=== PATIENT | female | born 1945 | race Caucasian/White ===

== ENCOUNTER → 2023-08-31 11:54 | Outpatient (REF) | payer MEDICARE, SELFPAY | LOC: RAD 11:54 | PROVIDERS: ATTENDING PHYSICIAN Family Medicine | DX: S80.911A Unspecified superficial injury of right knee, initial encounter (principal); M25.561 Pain in right knee; W19.XXXA Unspecified fall, initial encounter | CPT/HCPCS: 73564 ==

== ENCOUNTER 2024-01-12 13:20 | Emergency (ER) | payer MEDICARE, SELFPAY ==
[2024-01-12 13:34] VITALS: BP 144/105
--- NOTE | 2024-01-12 16:52 | ED.GENMED ---
History of Present Illness
General
Chief Complaint: Abdominal Pain
Source: patient
Time Seen by Provider: 01/12/24 16:35
Travel History
Have you had any contact with someone who has COVID-19?: No
Do you have any symptoms of coronavirus? Fever > 100 degrees, chills, cough, shortness of breath, sore throat, loss of taste or smell, muscle aches, or headache?: No
History of Present Illness
History of Present Illness:
78-year-old female presents with left lower quadrant abdominal pain worse after having a bowel movement for the past week. Initially saw family doctor. She was told to increase her fiber intake which she has but this has not helped. No urinary
symptoms fever cough chest pain or shortness of breath. She denies any blood in the bowel movement. No vomiting. Prior surgical history includes cholecystectomy. She has a remote history of diverticulitis. No other to this time
Past History
Past History
ED Past Medical History: COPD, Psychiatric and Other (AAA)
ED Past Surgical History: Tonsilectomy and Other (AAA repair)
Social History
Tobacco: Non-smoker
Alcohol: None
Drug: None
Personal:
Living: with family
Phy Exam
Physical Exam
Physical Exam:
General: Well-appearing female no acute respiratory distress
HEENT: Normocephalic atraumatic
Heart: Regular rate and rhythm no murmurs
Lungs: Clear to auscultation bilaterally no wheezing
Abdomen soft tender to left lower quadrant no guarding rebound normal bowel sounds nondistended
Extremities: No cyanosis or edema
Course
Orders/Labs/Results
Orders:
Orders
01/12/24 13:38
IV Insert/Care/Rem.- Treatment PRN
01/12/24 16:47
CT Abd/pelvis W Iv Cont Urgent
Comment:
Reason For Exam: LLQ pain
01/12/24 17:26
Complete Blood Count/With Diff Urgent
Comprehensive Metabolic Panel Urgent
Lipase Urgent
01/12/24 18:41
Urinalysis Reflex To Culture Urgent
Date Specimen was Collected: 01/12/24
Time Specimen was Collected: 18:40
Urine Microscopic Reflex Cult Urgent
Abnormal Lab Results
01/12/24 01/12/24
17:26 18:41
Hgb 16.7 H g/dL
(12.0-16.0)
Hct 48.2 H %
(37.0-47.0)
MCV 104.1 H fL
(81.0-99.0)
MCH 36.1 H pg
(27.0-31.0)
Sodium 134 L mmol/L
(135-145)
Creatinine 0.5 L mg/dL
(0.6-1.0)
Glucose 110 H mg/dl
(70-99)
Ur Occult Blood Reflex Trace A
(Negative)
Urine Bilirubin 1+ A
(Negative)
Leukocyte Esterase Rfl Trace A
(Negative)
Urine Bacteria (Reflex) Few A
(Negative)
01/12/24 17:26
01/12/24 17:26
Vital Signs
Initial and Last Documented VS:
Initial Vital Signs
Temp Pulse Resp BP Pulse Ox
98.7 F 88 22 144/105 97
01/12/24 13:34 01/12/24 13:34 01/12/24 13:34 01/12/24 13:34 01/12/24 13:34
Last Documented Vital Signs
Temp Pulse Resp BP Pulse Ox
98.7 F 88 22 144/105 97
01/12/24 13:34 01/12/24 13:34 01/12/24 13:34 01/12/24 13:34 01/12/24 13:34
MDM/Problems Addressed
Differential Diagnosis Includes:
Left lower quadrant abdominal pain. Differential could include diverticulitis versus UTI versus bowel obstruction versus hernia
Check labs. Will order CT of abdomen with IV contrast
*Critical Care Note
Total Time (30-74mins, 75-104mins- exclusive of procedures): Not Applicable
Update Note
Update Note:
White count normal. CT shows diverticulosis but no diverticulitis. There is a mild amount of stool in the colon. Recommended stool softeners. Stable for discharge Xarelto check urinalysis
5 no obvious signs of infection but culture is pending. Hold off on treatment for UTI unless culture comes back positive.
ED Attending Note
-
Portions of this chart may have been created with voice recognition software.� Occasional wrong word or��sound alike� substitutions may have occurred due to the inherent limitations of voice recognition software.
Discharge Plan
Departure
Patient Disposition: Home (Routine Discharge)
Date of Disposition: 01/12/24
Time of Disposition: 19:50
Patient with high blood pressure during this ER visit?: No
Discharge Problem:
Abdominal pain
Instructions: Abdominal Pain
Prescriptions:
No Action
ibuprofen 200 mg Capsule
200 - 400 mg PO PRN PRN (Reason: pain)
dicyclomine 10 mg Capsule
10 mg PO BID PRN (Reason: Gi Issues)
cholecalciferol (vitamin D3) [Vitamin D3] 50 mcg (2,000 unit) Tablet
50 mcg PO DAILY
atorvastatin 10 mg Tablet
10 mg PO QPM Qty: 90 0RF
tolterodine 4 mg Capsule,Extended Release 24hr
4 mg PO DAILY
Systane Complete 0.6 % Drops
1 drp BOTH EYES PRN PRN (Reason: dry eyes)
acetaminophen [acetaminophen] 325 mg tablet
650 mg PO Q6HPRN PRN (Reason: mild pain) Qty: 14 0RF
tramadol 50 mg tablet
25 mg PO Q6HPRN PRN (Reason: severe pain/breakthrough pain) Qty: 8 0RF
ibuprofen 600 mg tablet
600 mg PO Q6H PRN (Reason: pain) Qty: 14 0RF
amoxicillin-pot clavulanate [amoxicillin-pot clavulanate] 875-125 mg tablet
1 tab PO Q12 Qty: 8 0RF
Referrals:
Reyna Shea DO [Family Provider] -
Activity Restrictions/Additional Instructions:
Continue with fiber and stool softeners. Return here for worsening symptoms. Follow-up with family doctor. You should receive a call if your urine culture is positive
Interventions
Interventions:
*Risk Screen - Suicide Last Done: 01/12/24 13:34
*General Assessment Last Done: 01/12/24 13:34
*Neglect/Abuse Screening Last Done: 01/12/24 13:34
ED- Fall Risk Assessment Last Done: 01/12/24 17:37
*ED COVID-19 Vaccine History Last Done: 01/12/24 17:38
FZ-Dfqrhq-Jjekvscjyq Assessment Last Done: 01/12/24 17:38
Discharge Date and Time
Print Language: ITALIAN
[2024-01-12 17:37] VITALS: BMI 23.5
[2024-01-12 18:07] LABS: % Basophils 0.5 % (0-2); % Eosinophils 0.9 % (0-6); % Immature Granulocytes 0.2 % (0-0.5); % Lymphocytes 23.4 % (20.5-51.1); Absolute Eosinophils 0.1 10^3/uL (0-0.7); Absolute Lymphocytes 1.4 10^3/uL (1.2-3.4); Absolute Monocytes 0.5 10^3/uL (0.1-0.6); Absolute Neutrophils 3.9 10^3/uL (1.4-6.5); Hematocrit 48.2 % (37.0-47.0); Hemoglobin 16.7 g/dL (12.0-16.0); Mean Corp Hgb Conc. 34.6 g/dL (33.0-37.0); Mean Corpuscular Hgb 36.1 pg (27.0-31.0); Mean Corpuscular Volume 104.1 fL (81.0-99.0); Mean Platelet Volume 9.2 fL (7.4-10.4); Nucleated Red Blood Cells % 0 %; Platelet Count 198 10^3/uL (130-400); Red Blood Cell Count 4.63 10^6/uL (4.20-5.40); Red Cell Dist. Width 13.9 % (11.5-14.5); White Blood Cell Count 5.9 10^3/uL (4.8-10.8)
[2024-01-12 18:30] LABS: ALT (SGPT) 12 U/L (0-35); AST (SGOT) 20 U/L (14-36); Albumin 4.2 g/dl (3.5-5.0); Alkaline Phosphatase 87 U/L (38-126); Blood Urea Nitrogen 15 mg/dl (7-17); Calcium 9.4 mg/dl (8.4-10.2); Carbon Dioxide 29 mmol/L (22-30); Chloride 103 mmol/L (98-107); Estimated Creatinine Clearance 74 ml/min; Glucose 110 mg/dl (70-99); Lipase 53 U/L (23-300); Potassium 4.2 mmol/L (3.5-5.1); Sodium 134 mmol/L (135-145); Total Bilirubin 1.1 mg/dl (0.2-1.3); Total Protein 7.1 g/dl (6.3-8.2); eGFR > 60.00
[2024-01-12 19:00] LABS: Urine Albumin Trace (Neg - Trace); Urine Bilirubin 1+ (Negative); Urine Character Clear (Clear); Urine Color Yellow; Urine Glucose Negative (Negative); Urine Ketone Negative (Negative); Urine Leukocyte Trace (Negative); Urine Nitrite Negative (Negative); Urine Occult Blood Trace (Negative); Urine Specific Gravity 1.025 (<1.030); Urine Urobilinogen 1+ (Neg - 1+)
[2024-01-12 19:40] LABS: Urine Calcium Oxalate Crystals Present
[2024-01-12 19:41] LABS: Urine Bacteria Few (Negative); Urine Red Blood Cell 0-2 /HPF (0-2); Urine White Cell 0-2 /HPF (0-5)
== END 2024-01-12 20:01 | disposition home or self-care (01) ==
LOC: EMR 13:20
PROVIDERS: Physician Assistant; EMERGENCY PHYSICIAN Emergency Medicine; FAMILY PHYSICIAN Family Medicine
DX: R10.32 Left lower quadrant pain (principal)
CPT/HCPCS: 99285; 74177; 80053; 81003; 81015; 83690; 85025; Q9967

== ENCOUNTER 2024-08-05 13:50 | Emergency (ER) | payer MEDICARE, SELFPAY ==
[2024-08-05 13:58] VITALS: BP 158/104
[2024-08-05 14:09] VITALS: BMI 24.7
[2024-08-05 14:13] VITALS: BP 161/81
--- NOTE | 2024-08-05 14:29 | ED.GENMED ---
History of Present Illness
<Carina Scanlon PA-C - Last Filed: 08/05/24 18:15>
General
Chief Complaint: Musculo-Skeletal Complaint
Source: patient
Time Seen by Provider: 08/05/24 14:18
History of Present Illness
History of Present Illness:
78yo right hand dominant female with a history of COPD and hyperlipidemia presenting with her for evaluation of weakness of the left hand. Patient reports that she has been dropping things from her left hand over the past week or so which is
new for her. She denies any associated pain or paresthesias of the hand/forearm. She denies any symptoms in the other extremities. Of note, patient has been having headaches in the mornings over the past 2 weeks which improve with Tylenol. She is
otherwise asymptomatic and denies any visual changes, dizziness, speech disturbance, gait disturbance, chest pain.
Past History
<Carina Scanlon PA-C - Last Filed: 08/05/24 18:15>
Past History
ED Past Medical History: COPD, Psychiatric and Other (AAA)
ED Past Surgical History: Tonsilectomy and Other (AAA repair)
Social History
Tobacco: Non-smoker
Alcohol: None
Drug: None
Personal:
Living: with family
Phy Exam
<Carina Scanlon PA-C - Last Filed: 08/05/24 18:15>
General Physical Exam
General Presentation: well appearing and no apparent distress
General age: appears stated age
General Skin: warm and dry
General Habitus: normal
General Mental: alert
ENT Exam
ENT Exam: normocephalic
Neurological Exam
Neurological Exam: alert and other (L hand held in slight flexion. Wool Cleaner strength is grossly equal bilaterally. CN 2-12 grossly intact. PERRL. EOMs intact. Negative drift x4. Normal finger to nose and heel to pleitez bilaterally. )
[place] Coma Scale
Eye Opening: Spontaneous
Verbal Response: Oriented
Motor Response: Obeys Commands
GCS Total Score: 15
Musculoskeletal Exam
Musculoskeletal Exam: full ROM, no edema and other (ROM of L wrist and fingers intact. No tenderness or soft tissue swelling. Motor and sensation intact in median, ulnar, and radial nerve distribution. )
Skin Exam
Skin Exam: normal color and warm/dry
Psychiatric Exam
Psychiatric Exam: normal mood/affect
Course
<Carina Scanlon PA-C - Last Filed: 08/05/24 18:15>
Orders/Labs/Results
Orders:
Orders
08/05/24 14:29
CT Head W/o Iv Contrast Urgent
Comment:
Reason For Exam: L hand weakness
08/05/24 14:47
CT Cervical Spine W/o Iv Contr Urgent
Comment:
Reason For Exam: L hand weakness
08/05/24 14:48
CR Chest - 2 Views Urgent
Comment:
Reason For Exam: R/o chest mass
08/05/24 15:06
Complete Blood Count/With Diff Urgent
Comprehensive Metabolic Panel Urgent
Abnormal Lab Results
08/05/24
15:06
MCV 103.3 H fL
(81.0-99.0)
MCH 35.7 H pg
(27.0-31.0)
Absolute Lymphs (auto) 0.9 L 10^3/uL
(1.2-3.4)
Lymphocytes % 15.6 L %
(20.5-51.1)
Monocytes % 9.4 H %
(1.7-9.3)
Glucose 132 H mg/dl
(70-99)
08/05/24 15:06
08/05/24 15:06
Vital Signs
Initial and Last Documented VS:
Initial Vital Signs
Temp Pulse Resp BP Pulse Ox
98.2 F 95 16 158/104 95
08/05/24 13:58 08/05/24 13:58 08/05/24 13:58 08/05/24 13:58 08/05/24 13:58
Last Documented Vital Signs
Temp Pulse Resp BP Pulse Ox
98.2 F 73 16 166/90 94
08/05/24 13:58 08/05/24 17:16 08/05/24 17:16 08/05/24 17:00 08/05/24 17:16
<Rodrigo Iraheta MD - Last Filed: 08/05/24 14:58>
Orders/Labs/Results
Orders:
Orders
08/05/24 14:29
CT Head W/o Iv Contrast Urgent
Comment:
Reason For Exam: L hand weakness
08/05/24 14:47
CT Cervical Spine W/o Iv Contr Urgent
Comment:
Reason For Exam: L hand weakness
08/05/24 14:48
CR Chest - 2 Views Urgent
Comment:
Reason For Exam: R/o chest mass
08/05/24 15:06
Complete Blood Count/With Diff Urgent
Comprehensive Metabolic Panel Urgent
Abnormal Lab Results
08/05/24
15:06
MCV 103.3 H fL
(81.0-99.0)
MCH 35.7 H pg
(27.0-31.0)
Absolute Lymphs (auto) 0.9 L 10^3/uL
(1.2-3.4)
Lymphocytes % 15.6 L %
(20.5-51.1)
Monocytes % 9.4 H %
(1.7-9.3)
Glucose 132 H mg/dl
(70-99)
08/05/24 15:06
08/05/24 15:06
Vital Signs
Initial and Last Documented VS:
Initial Vital Signs
Temp Pulse Resp BP Pulse Ox
98.2 F 95 16 158/104 95
08/05/24 13:58 08/05/24 13:58 08/05/24 13:58 08/05/24 13:58 08/05/24 13:58
Last Documented Vital Signs
Temp Pulse Resp BP Pulse Ox
98.2 F 73 16 166/90 94
08/05/24 13:58 08/05/24 17:16 08/05/24 17:16 08/05/24 17:00 08/05/24 17:16
<Carina Scanlon PA-C - Last Filed: 08/05/24 18:15>
MDM/Problems Addressed
Differential Diagnosis Includes:
78yoF here with L hand weakness. She has been dropping things with her left hand over the past week or so. No associated pain or paresthesias. Also having some headaches that improve with Tylenol. L hand is held in slight flexion. There is no
obvious weakness with ladies underwear operator strength on exam. LUE is neurovascularly intact. No other focal neuro deficit on exam. Differential diagnosis includes but is not limited to: peripheral neuropathy, cervical radiculopathy, brain mass, doubt CVA
Initial ED plan: Will check basic labs, CT head, CT cervical spine, and CXR.
<Carina Scanlon PA-C - Last Filed: 08/05/24 18:15>
*Critical Care Note
Total Time (30-74mins, 75-104mins- exclusive of procedures): Not Applicable
<Carina Scanlon PA-C - Last Filed: 08/05/24 18:15>
Update Note
Update Note:
Labs overall unremarkable. CT head is negative for acute findings. CT cervical spine shows degenerative changes but otherwise unremarkable. Chest x-ray shows a 4.3 cm right upper lobe opacity which may represent a mass or pneumonia. On
reassessment, she does report having some URI symptoms last week and a 'slight cough.' No fevers or leukocytosis noted. Patient does have a history of tobacco use and COPD. CXR findings discussed with patient and . Discussed need for
further outpatient testing/imaging regarding the possible mass. Will cover with doxycycline although unclear if this truly represents a pneumonia. Advised close PCP and pulmonology f/u. She was also advised to f/u with neurology for her left hand
symptoms. ED return precautions discussed. She was discharged in stable condition.
ED Attending Note
<Carina Scanlon PA-C - Last Filed: 08/05/24 18:15>
-
Portions of this chart may have been created with voice recognition software.� Occasional wrong word or��sound alike� substitutions may have occurred due to the inherent limitations of voice recognition software.
<Rodrigo Iraheta MD - Last Filed: 08/05/24 14:58>
ED Attending Note
Patient seen and examined by attending physician: Yes
I performed the substantive portion of visit, reviewed & personally made and approve the management plan that is documented in note by myself or ILENE.: Yes
ED Attending Note:
Patient with weeks of left arm weakness and ladies underwear operator issues. Somewhat worse the last week or so. Denies other weakness denies proximal arm weakness neck pain headache chest pain speech issues swallowing issues visual issues etc.
On exam patient is nontoxic in no distress. Cranial nerves II through XII intact. She has no carotid bruit. Speech is normal. No arm drift. She does hold her left hand in slight flexion at the fingers. [id number] normal. Aircraft Technician appear
relatively normal slightly decreased interosseous on the left. Some possible hand muscle wasting. Good lower extremity strength. Good [id number] normal. Light touch intact.
Clinically much more suspicious of a peripheral nerve issue. Patient does smoke. Will get a chest x-ray to evaluate for an upper lobe lesion. Cervical spine head CT. If all stable will be discharged to follow-up with neurology
Discharge Plan
Departure
Patient Disposition: Home (Routine Discharge)
Date of Disposition: 08/05/24
Time of Disposition: 16:42
Patient with high blood pressure during this ER visit?: Yes
Discharge Problem:
Decreased ladies underwear operator strength of left hand, Mass of right lung
Instructions: Weakness ED
Prescriptions:
New
doxycycline hyclate 100 mg capsule
100 mg PO BID Qty: 14 0RF
No Action
ibuprofen 200 mg Capsule
200 - 400 mg PO PRN PRN (Reason: pain)
dicyclomine 10 mg Capsule
10 mg PO BID PRN (Reason: Gi Issues)
cholecalciferol (vitamin D3) [Vitamin D3] 50 mcg (2,000 unit) Tablet
50 mcg PO DAILY
atorvastatin 10 mg Tablet
10 mg PO QPM Qty: 90 0RF
tolterodine 4 mg Capsule,Extended Release 24hr
4 mg PO DAILY
Systane Complete 0.6 % Drops
1 drp BOTH EYES PRN PRN (Reason: dry eyes)
acetaminophen [acetaminophen] 325 mg tablet
650 mg PO Q6HPRN PRN (Reason: mild pain) Qty: 14 0RF
tramadol 50 mg tablet
25 mg PO Q6HPRN PRN (Reason: severe pain/breakthrough pain) Qty: 8 0RF
ibuprofen 600 mg tablet
600 mg PO Q6H PRN (Reason: pain) Qty: 14 0RF
amoxicillin-pot clavulanate [amoxicillin-pot clavulanate] 875-125 mg tablet
1 tab PO Q12 Qty: 8 0RF
Referrals:
Jeannette Cabrera DO [Active] -
Varsha Farah MD [Active] -
Reyna Shea DO [Family Provider] -
Activity Restrictions/Additional Instructions:
Take antibiotics as prescribed.
There was a mass in the right lung seen incidentally on your chest x-ray.
Please call your family doctor and pulmonology to schedule a follow-up appointment for this mass. You should also see a neurologist for your left hand symptoms.
Return to the ER with any new or worsening symptoms.
Interventions
Interventions:
*Risk Screen - Suicide Last Done: 08/05/24 13:58
*General Assessment Last Done: 08/05/24 13:58
*Neglect/Abuse Screening Last Done: 08/05/24 13:58
ED- Fall Risk Assessment Last Done: 08/05/24 14:09
*ED COVID-19 Vaccine History Last Done: 08/05/24 14:09
*Nursing Disposition Last Done: 08/05/24 17:17
ED-Musculoskeletal Assessment Last Done: 08/05/24 15:11
Discharge Date and Time
Discharge Date/Time: 08/05/24 17:17
Print Language: TRISTANIAN
[2024-08-05 15:00] VITALS: BP 159/83
[2024-08-05 15:17] LABS: % Basophils 0.5 % (0-2); % Eosinophils 0.7 % (0-6); % Immature Granulocytes 0.2 % (0-0.5); % Lymphocytes 15.6 % (20.5-51.1); % Monocytes 9.4 % (1.7-9.3); % Neutrophils 73.6 % (42.2-75.2); Absolute Lymphocytes 0.9 10^3/uL (1.2-3.4); Absolute Monocytes 0.6 10^3/uL (0.1-0.6); Absolute Neutrophils 4.4 10^3/uL (1.4-6.5); Hematocrit 44.3 % (37.0-47.0); Hemoglobin 15.3 g/dL (12.0-16.0); Mean Corp Hgb Conc. 34.5 g/dL (33.0-37.0); Mean Corpuscular Hgb 35.7 pg (27.0-31.0); Mean Corpuscular Volume 103.3 fL (81.0-99.0); Nucleated Red Blood Cells % 0 %; Platelet Count 159 10^3/uL (130-400); Red Blood Cell Count 4.29 10^6/uL (4.20-5.40); Red Cell Dist. Width 13.2 % (11.5-14.5)
[2024-08-05 15:26] LABS: ALT (SGPT) 15 U/L (0-35); AST (SGOT) 25 U/L (14-36); Albumin 4.3 g/dl (3.5-5.0); Alkaline Phosphatase 78 U/L (38-126); Blood Urea Nitrogen 15 mg/dl (7-17); Calcium 8.9 mg/dl (8.4-10.2); Carbon Dioxide 28 mmol/L (22-30); Chloride 103 mmol/L (98-107); Estimated Creatinine Clearance 74 ml/min; Glucose 132 mg/dl (70-99); Potassium 4.1 mmol/L (3.5-5.1); Sodium 140 mmol/L (135-145); Total Bilirubin 0.6 mg/dl (0.2-1.3); eGFR > 60.00
[2024-08-05 17:00] VITALS: BP 166/90
== END 2024-08-05 17:17 | disposition home or self-care (01) ==
LOC: EMR 13:50
PROVIDERS: Physician Assistant; EMERGENCY PHYSICIAN Emergency Medicine; FAMILY PHYSICIAN Family Medicine
DX: R29.898 Other symptoms and signs involving the musculoskeletal system (principal); R53.1 Weakness; R91.8 Other nonspecific abnormal finding of lung field; E78.5 Hyperlipidemia, unspecified; J44.9 Chronic obstructive pulmonary disease, unspecified; F17.200 Nicotine dependence, unspecified, uncomplicated
CPT/HCPCS: 99284; 70450; 71046; 72125; 80053; 85025